=== PATIENT | female | born 1970 | race Caucasian/White ===

== ENCOUNTER 2017-03-14 23:24 | Emergency (ER) | payer MEDICAID ==
[~2017-03-14] VITALS: Ht 154.9 cm; Wt 60.2 kg
[2017-03-14] MEDS ORDERED: SODIUM CHLORIDE 0.9% 1,000 ML IV ONE (23:49)
[2017-03-15] MEDS ORDERED: SODIUM CHLORIDE FLUSH 10ML SYR IVF ONE
[2017-03-15] MEDS ORDERED: ONDANSETRON 2MG/ML, 2ML IVPush ONE
[2017-03-15] MEDS ORDERED: KETOROLAC 30 MG/1 ML IVPush ONE
[2017-03-15] MEDS ORDERED: MORPHINE SULFATE 4 MG/ML, 1ML ONE ×2 (00:10→01:43)
[2017-03-15] MEDS ORDERED: ONDANSETRON 2MG/ML, 2ML ONE (00:10)
[2017-03-15] MEDS ORDERED: KETOROLAC 30 MG/1 ML ONE (00:10)
[2017-03-15] MEDS: MORPHINE SULFATE 4 MG/ML, 1ML IVPush PRN ×2 (00:19→01:44)
[2017-03-15 00:33] LABS: BLOOD UREA NITROGEN 10 mg/dL (7-18)
[2017-03-15 00:39] LABS: ASPARTATE AMINO TRANSFERASE 24 U/L (15-37)
[2017-03-15 02:20] VITALS: BP 105/78
== END 2017-03-15 02:23 | disposition home or self-care (01) ==
LOC: ED 23:59
DX: K59.00 Constipation, unspecified (principal); J44.9 Chronic obstructive pulmonary disease, unspecified; F17.200 Nicotine dependence, unspecified, uncomplicated
CPT/HCPCS: 36415; 74176; 80053; 81001; 83690; 84703; 85025; 96361; 96374; 96375; 96376; 99285; J1885; J2405; J7030

== ENCOUNTER 2019-07-19 10:05 | Emergency (ER) | payer MEDICAID ==
[~2019-07-19] VITALS: Ht 149.9 cm; Wt 60.0 kg
[2019-07-19 10:07] VITALS: BP 125/62
== END 2019-07-19 11:24 | disposition home or self-care (01) ==
LOC: ED 11:10
DX: S83.91XA Sprain of unspecified site of right knee, initial encounter (principal); T39.315A Adverse effect of propionic acid derivatives, initial encounter; J44.9 Chronic obstructive pulmonary disease, unspecified; F17.200 Nicotine dependence, unspecified, uncomplicated; W01.0XXA Fall on same level from slipping, tripping and stumbling without subsequent striking against object, initial encounter; Y93.01 Activity, walking, marching and hiking; Y92.89 Other specified places as the place of occurrence of the external cause; Y99.8 Other external cause status
CPT/HCPCS: 99283

== ENCOUNTER 2019-10-25 13:23 | Emergency (ER) | payer MEDICAID ==
[~2019-10-25] VITALS: Ht 152.4 cm; Wt 56.0 kg
[2019-10-25 13:30] VITALS: BP 134/84
== END 2019-10-25 14:22 ==
LOC: ED 14:21
DX: R05 Cough (principal); J44.9 Chronic obstructive pulmonary disease, unspecified
CPT/HCPCS: 71046; 99283

== ENCOUNTER 2019-12-04 14:04 | Emergency (ER) | payer MEDICAID ==
[~2019-12-04] VITALS: Ht 152.4 cm; Wt 54.0 kg
[2019-12-04 14:20] VITALS: BP 129/85
--- NOTE | 2019-12-04 14:26 | NUR ---
VITALS OBTAINED BY THIS TECH
--- NOTE | 2019-12-04 15:09 | NUR ---
ALL RESULTS ARE BACK AT THIS TIME. CHART UP FOR RECHECK.
[2019-12-04] MEDS ORDERED: DEXAMETHASONE 4 MG TABLET ONE (15:56)
--- NOTE | 2019-12-04 15:59 | NUR ---
MEDS ADMIN PER OCT.
[2019-12-04] MEDS ORDERED: DEXAMETHASONE 4 MG TABLET PO ONE (16:00)
== END 2019-12-04 16:21 | disposition home or self-care (01) ==
LOC: ED 14:55
DX: J45.31 Mild persistent asthma with (acute) exacerbation (principal)
CPT/HCPCS: 71045; 99283

== ENCOUNTER 2019-12-29 10:59 | Emergency (ER) | payer MEDICAID ==
[~2019-12-29] VITALS: Ht 152.4 cm; Wt 56.9 kg
[2019-12-29 11:05] VITALS: BP 110/77
== END 2019-12-29 12:01 | disposition home or self-care (01) ==
LOC: ED 11:53
DX: J45.40 Moderate persistent asthma, uncomplicated (principal); Z20.828 Contact with and (suspected) exposure to other viral communicable diseases; F17.210 Nicotine dependence, cigarettes, uncomplicated
CPT/HCPCS: 99283; U0001

== ENCOUNTER 2020-01-27 11:28 | Emergency (ER) | payer MEDICAID ==
[~2020-01-27] VITALS: Ht 152.4 cm; Wt 58.6 kg
[2020-01-27 13:13] VITALS: BP 134/65
== END 2020-01-27 13:15 | disposition home or self-care (01) ==
LOC: ED 13:13
DX: J45.30 Mild persistent asthma, uncomplicated (principal); R05 Cough
CPT/HCPCS: 71045; 99283

== ENCOUNTER 2020-03-01 20:04 | Emergency (ER) | payer MEDICAID ==
[~2020-03-01] VITALS: Ht 165.1 cm; Wt 58.7 kg
[2020-03-01 20:07] VITALS: BP 104/73
== END 2020-03-01 21:28 ==
LOC: ED 21:22
DX: J45.41 Moderate persistent asthma with (acute) exacerbation (principal); R05 Cough
CPT/HCPCS: 99283

== ENCOUNTER 2020-03-10 17:13 | Emergency (ER) | payer MEDICAID ==
[~2020-03-10] VITALS: Ht 162.6 cm; Wt 58.8 kg
--- NOTE | 2020-03-10 18:02 | NUR ---
SOLUTION DESIGN ENGINEER: PT WALKED BACK FROM LOBBY TO ROOM AT THIS TIME.
--- NOTE | 2020-03-10 18:29 | NUR ---
PATIENT COMES INTO TODAY WITH C/O COUGH FOR 1-2 WEEKS. PATIENT HAS HISTORY OF ASTHMA, AND WORKS IN A WAREHOUSE. PATIENT STATES SHE NEEDS A "RETURN TO WORK NOTE." PATIENT DENIES ANY OTHER MEDICAL ISSUES. NO C/O PAIN, VITAL SIGNS WDL. NO FURTHER NEEDS AT THIS TIME. ERMD AT BEDSIDE TO PERFORM EVALUATION.
[2020-03-10 18:48] VITALS: BP 132/81
== END 2020-03-10 18:50 | disposition home or self-care (01) ==
LOC: ED 18:30
DX: J42 Unspecified chronic bronchitis (principal); R05 Cough
CPT/HCPCS: 99281

== ENCOUNTER 2020-12-20 02:16 | Emergency (ER) | payer MEDICAID ==
[~2020-12-20] VITALS: Ht 154.9 cm; Wt 70.0 kg
[2020-12-20 02:19] VITALS: BP 134/80
--- NOTE | 2020-12-20 02:33 | NUR ---
WORSENING COPD COUGH THIS WEEK (MORE NAGGING) "I THINK I POPPED SOMETHING TODAY WITH ALL MY COUGHING" PAIN TO EPIGASTRIC REGION. REPRODUCIBLE. NO OBVIOUS HERNIA VSS ON NIBP/POX
== END 2020-12-20 03:57 | disposition home or self-care (01) ==
LOC: ED 03:40
DX: M94.0 Chondrocostal junction syndrome [Tietze] (principal); B34.9 Viral infection, unspecified; F17.210 Nicotine dependence, cigarettes, uncomplicated; R07.89 Other chest pain; J44.9 Chronic obstructive pulmonary disease, unspecified
CPT/HCPCS: 71045; 99406